=== PATIENT | female | born 1985 | race Caucasian/White ===

== ENCOUNTER 2017-02-27 06:18 | Emergency (ER) | payer OTHER ==
[~2017-02-27] VITALS: Ht 165.1 cm; Wt 160.0 kg
[2017-02-27 07:10] VITALS: BP 118/67
== END 2017-02-27 08:13 | disposition home or self-care (01) ==
LOC: EMS 06:20
DX: T16.2XXA Foreign body in left ear, initial encounter (principal); F17.210 Nicotine dependence, cigarettes, uncomplicated
CPT/HCPCS: 99281